=== PATIENT | female | born 1970 | race Caucasian/White ===

== ENCOUNTER → 2017-01-09 | Outpatient (CLI) | payer BC ==
--- NOTE | 2017-01-09 09:15 | MM ---
Reason for exam: screening (asymptomatic). Baseline mammogram. Physical Findings: Nurse did not find any significant physical abnormalities on exam. MG Screening Mammo w CAD Bilateral CC and MLO view(s) were taken. There is no discrete abnormality. These results were verbally communicated with the patient and result sheet given to the patient on 01/09/17. ASSESSMENT: Negative, BI-RAD 1 RECOMMENDATION: Routine screening mammogram of both breasts in 1 year.
== END | disposition home or self-care (01) ==
LOC: RADMAMWWP 07:51
PROVIDERS: ATTEND Obstetrics & Gynecology
DX: Z12.31 Encounter for screening mammogram for malignant neoplasm of breast (principal)

== ENCOUNTER → 2017-09-15 | Outpatient (CLI) | payer BC ==
[2017-09-15 09:57] LABS: Anion Gap 11 mmol/L; Blood Urea Nitrogen 14 mg/dL (7-17); Carbon Dioxide 21 mmol/L (22-30); Chloride 106 mmol/L (98-107); Glucose 122 mg/dL (74-99); Potassium 4.4 mmol/L (3.5-5.1); Sodium 138 mmol/L (137-145)
[2017-09-15 10:32] LABS: Basophils % (A) 0 %; Eosinophils # (A) 0.1 k/uL (0-0.7); Eosinophils % (A) 1 %; HCT 33.7 % (34.0-46.0); Hypochromasia Slight; Lymphocytes # (A) 1.2 k/uL (1.0-4.8); Lymphocytes % (A) 14 %; MCH 27.7 pg (25.0-35.0); MCHC 32.6 g/dL (31.0-37.0); MCV 85.1 fL (80.0-100.0); Mean Platelet Volume 7.4; Monocytes # (A) 0.5 k/uL (0-1.0); Monocytes % (A) 6 %; Neutrophils # (A) 6.3 k/uL (1.3-7.7); Neutrophils % (A) 78 %; Platelet Count 326 k/uL (150-450); RBC 3.97 m/uL (3.80-5.40); RDW 14.3 % (11.5-15.5); WBC 8.1 k/uL (3.8-10.6)
== END | disposition home or self-care (01) ==
LOC: LABPAT 08:15
PROVIDERS: ATTEND Obstetrics & Gynecology
DX: N92.0 Excessive and frequent menstruation with regular cycle (principal); D25.9 Leiomyoma of uterus, unspecified
CPT/HCPCS: 36415; 80051; 82565; 82947; 84520; 85025; 87086

== ENCOUNTER 2017-09-22 05:52 | Day surgery (SDC) | payer BC ==
[2017-09-18 08:36] VITALS: BMI 33.3
[~2017-09-22 05:52] MED LIST: DEXAMETHASONE SOD PHOSPHATE 10 MG/ML 1 ML VIAL IV ONE; HYDROmorphone 0.5 MG/0.5 ML SYRINGE IVP PRN; LACTATED RINGERS 1,000 ML IV SCH; LIDOCAINE 1% 20 ML VIAL (10MG/ML) FOR IV START INTRADERMA PRN; MIDAZOLAM 2 MG/2 ML VIAL IV PRN; ONDANSETRON 4 MG/2 ML VIAL IVP ONE; SCOPOLAMINE 1.5MG/72HR PATCH TRANSDERM ONE; ceFAZolin IN SWFI 2 GM/20 ML SYRINGE IVP ONE
[2017-09-22 06:45] LABS: Glucose,Whole Blood 127 mg/dL (75-99)
[2017-09-22] MEDS ORDERED: VASOPRESSIN 20 UNIT/ML 1 ML VIAL IM ONE ×3 (07:26→08:47)
[2017-09-22] MEDS ORDERED: BACITRACIN 500 UNIT/GM OINT 28.4 GM TUBE TOPICAL ONE ×2 (07:27→09:52)
[2017-09-22] MEDS ORDERED: MORPHINE SULFATE (PF) 0.3 MG/0.3 ML SYR ONE (08:21)
[2017-09-22] MEDS ORDERED: PROPOFOL 10 MG/ML 20 ML VIAL IV ONE (08:21)
[2017-09-22] MEDS ORDERED: MIDAZOLAM 2 MG/2 ML VIAL ONE (08:21)
[2017-09-22] MEDS ORDERED: fentaNYL (PF) 50 MCG/ML 2 ML AMP ONE (08:21)
[2017-09-22] MEDS ORDERED: diphenhydrAMINE 50 MG/ML 1 ML VIAL IVP PRN ×2 (08:39→10:50)
[2017-09-22] MEDS ORDERED: MORPHINE SULFATE 2 MG/ML SYRINGE IVP PRN (08:39)
[2017-09-22] MEDS ORDERED: NALOXONE 0.4 MG/ML 1 ML VIAL IV PRN (08:39)
[2017-09-22] MEDS ORDERED: KETOROLAC 30 MG/ML 1 ML VIAL IVP PRN ×2 (08:39→10:50)
[2017-09-22] MEDS ORDERED: LACTATED RINGERS 1,000 ML IV ONE (09:33)
[2017-09-22 10:12] LABS: Glucose,Whole Blood 162 mg/dL (75-99)
[2017-09-22] MEDS ORDERED: Acetaminophen-Codeine 300-30mg TAB PO PRN (10:50)
[2017-09-22] MEDS ORDERED: SIMETHICONE 80 MG CHEWABLE PO PRN (10:50)
[2017-09-22] MEDS ORDERED: ONDANSETRON 4 MG/2 ML VIAL IVP PRN (10:50)
[2017-09-22] MEDS ORDERED: ZOLPIDEM 5 MG TAB PO PRN (10:50)
--- NOTE | 2017-09-22 10:50 | P.OP ---
Date of Procedure: 09/22/17 Preoperative Diagnosis: Menorrhagia, fibroid uterus Postoperative Diagnosis: Same, normal-appearing ovaries bilaterally Procedure(s) Performed: Vaginal hysterectomy Anesthesia: spinal Surgeon: Ginger Nelson Director Of Regional Sales #1: Annalee Diaz Estimated Blood Loss (ml): 150 IV fluids (ml): 800 Urine output (ml): 100 Pathology: other (Cervix and uterus) Condition: stable Disposition: PACU () Operative Findings: Posterior uterine adhesions, normal-appearing ovaries bilaterally, grade 3 rectocele Description of Procedure: Patient is brought to the operating suite where a spinal with Duramorph is given. She's placed in the dorsal lithotomy position, cervix vagina perineum periurethral areas are all prepped and draped in usual sterile fashion. Antibiotics are given. The appropriate timeout is performed to assure proper patient and procedural identification. Bladder is drained for possibly 100 mL of clear yellow urine. Beta hCG is negative. Weighted speculum was placed into the vagina. Anterior lip of the cervix is grasped with a double-tooth tenaculum. Cervix is injected circumferentially with dilute Pitressin solution, total of 10 mL used. Sharp scalpel is used circumferentially to incise the mucosa with a V positioning at 6:00. Sponge rolled finger is used to sweep the mucosa back from the underlying plane, to avoid bladder and/or ureteral injury. Peritoneum is entered at 6:00 and suture tied with 2-0 Vicryl. The large billed speculum is then placed into the peritoneal cavity. Care is taken at all times to keep the mucosa swept from the operative field to avoid any neurologic injury. Serafin clamps are used across the uterosacral cardinal ligaments, these are clamped cut tied and held in a fanlike fashion with Allis clamps. Uterine vasculature is identified, clamped cut and suture ligated. 2 additional pedicles are taken superior to the vessels. Anterior peritoneum is entered at 12:00. Uterus is "walked out" posteriorly. Serafin clamps are used across the final pedicles, these are clamped cut tied with 0 Vicryl, flashed and retied for excellent hemostasis. Sponge stick is used and the ovaries are visualized, they're within normal limits to inspection. The previously placed 2-0 Vicryl suture at 6:00 is then brought around in a pursestring fashion to close the peritoneal cavity. The previously placed uterosacral ligament pedicles are brought across to incorporate the opposite pedicles as well as vaginal mucosa. 3 additional [id number] sutures of 0 Vicryl used for final cuff closure. Vagina is packed with one-inch iodophor gauze. Mayer is noted to be draining clear urine. Rectal exam reveals smooth rectal mucosa. All sponge needle and enhancement counts are correct at the end of the procedure. Patient is brought back to recovery room in stable condition with a blood pressure 98/50, pulse 74, 99% O2 saturation.
[2017-09-22] MEDS: NALBUPHINE 10 MG/ML VIAL (10ML MDV) IV PRN ×3 (12:59→22:17)
[2017-09-22] MEDS ORDERED: LISINOPRIL 10 MG TAB PO SCH (21:00)
--- NOTE | 2017-09-23 05:28 | P.PN ---
Progress Note - Text Progress Note Date: 09/23/17 Postoperative day 1 status post vaginal hysterectomy with spinal Duramorph for postoperative analgesia.The patient is doing well, there is mild generalized skin itching. The patient denies any paresthesia or weakness in the lower extremities There are no other anesthesia related complications. Further management as per the patient primary team.
[2017-09-23] MEDS ORDERED: metFORMIN 500 MG TAB PO SCH (07:30)
--- NOTE | 2017-09-23 07:33 | P.DS ---
Providers Date of admission: 09/22/17 Expected date of discharge: 09/23/17 Attending physician: Ginger Nelson Primary care physician: [facility] Course: This is a 47-year-old white female who presented with an increasingly symptomatic fibroid uterus. She had very long heavy painful periods, status post NovaSure ablation with continued issues. Patient has had 3 vaginal deliveries and after discussion our decision was to proceed with vaginal hysterectomy. Please see my admitting H&P for details. Patient underwent vaginal hysterectomy under my care yesterday. She did well intraoperatively with an estimated blood loss of the 150 mL's. Ovaries appeared normal to inspection and therefore were left in situ. Vagina was packed with iodoform gauze and Mayer catheter placed. Please see dictated operative note for details. Today the patient is doing well. Mayer catheter and vaginal packing of been removed. She is voiding, and urinating, and passing flatus. Vital signs are stable and she is afebrile. There is only scant vaginal drainage noted on the pad. Her pain is well tolerated. She is mildly itchy but this has been taken care of with Nubain. Patient is being discharged home later today. She is in very good condition for discharge home. She'll follow-up with me in the office in 2 weeks. I have reminded her no intercourse, tampons or douching. She will use over-the- counter ibuprofen products, 200 mg pills, 3 every 6 hours as needed. I've asked her to call me with any fevers shakes or chills, bloody vaginal drainage, with any pain not alleviated by [id number] ibuprofen, with any issues with bowel or bladder, or indeed with any difficulties or concerns. Patient Condition at Discharge: Good Plan - Discharge Summary New Discharge Prescriptions: No Action amLODIPine BESYLATE/BENAZEPRIL [Lotrel 5-10 mg Capsule] 1 cap PO HS sitaGLIPtin PHOS/metFORMIN HCL [Janumet Xr 50-1,000 mg Tablet] 1 each PO QAM Discharge Medication List amLODIPine BESYLATE/BENAZEPRIL [Lotrel 5-10 mg Capsule] 1 cap PO HS 09/18/17 [ History] sitaGLIPtin PHOS/metFORMIN HCL [Janumet Xr 50-1,000 mg Tablet] 1 each PO QAM [History] Follow up Appointment(s)/Referral(s): Ginger Nelson MD [STAFF PHYSICIAN] - 2 Weeks
[2017-09-23] MEDS ORDERED: LINAGLIPTIN 5 MG TABLET PO SCH (09:00)
[2017-09-23 09:53] VITALS: BP 129/73; PULSE 90; RESP 16; TEMP 98.5
[2017-09-23] MEDS ORDERED: amLODIPine 5 MG TAB PO SCH (21:00)
== END 2017-09-23 09:56 | disposition home or self-care (01) ==
LOC: OR 05:52 → 6PED 09:53 → OR 09-23 09:56
PROVIDERS: ATTEND Obstetrics & Gynecology
DX: D25.9 Leiomyoma of uterus, unspecified (principal); N80.0 Endometriosis of uterus; N88.8 Other specified noninflammatory disorders of cervix uteri; N81.6 Rectocele; N73.6 Female pelvic peritoneal adhesions (postinfective); I10 Essential (primary) hypertension; E89.2 Postprocedural hypoparathyroidism; E11.9 Type 2 diabetes mellitus without complications; Z79.84 Long term (current) use of oral hypoglycemic drugs; Z79.899 Other long term (current) drug therapy; Z90.49 Acquired absence of other specified parts of digestive tract
CPT/HCPCS: 81025; 86900; 86901; 86850; 88307; 58260; J2250; J1200; J1100; J2300; J2405; J2274; J3010; J2704; J0690

== ENCOUNTER → 2018-06-24 | Outpatient (CLI) | payer BC ==
--- NOTE | 2018-06-24 15:33 | US ---
EXAMINATION TYPE: US abdomen complete DATE OF EXAM: 06/24/2018 COMPARISON: NONE CLINICAL HISTORY: 48-year-old female R10.11 right upper quadrant abdominal pain. TECHNIQUE: Multiple sonographic images of the abdomen are obtained. FINDINGS: EXAM MEASUREMENTS: Liver Length: 17.4 cm Gallbladder: Surgically absent CBD: 0.8 cm Spleen: 10.1 cm Right Kidney: 12.5 x 3.6 x 5.3 cm Left Kidney: 12.9 x 5.9 x 5.7 cm Pancreas: wnl Liver: Echogenic and attenuating. This secondarily limits assessment for focal lesion. Gallbladder: Surgically absent CBD: wnl Spleen: wnl Right Kidney: No hydronephrosis. Left Kidney: No hydronephrosis. Upper IVC:wnlnl Abd Aorta:wnlnl IMPRESSION 1. Borderline hepatomegaly (17.4 cm) with moderate to severe hepatic steatosis. Correlate with LFTs, lipid profile, and patient risk factors. 2. Bile duct at 8 mm is within acceptable limits postcholecystectomy status.
== END | disposition home or self-care (01) ==
LOC: RADUSWWP 11:01
PROVIDERS: ATTEND Internal Medicine
DX: K76.0 Fatty (change of) liver, not elsewhere classified (principal); R16.0 Hepatomegaly, not elsewhere classified
CPT/HCPCS: 76700

== ENCOUNTER → 2022-01-27 | Outpatient (CLI) | payer BC ==
--- NOTE | 2022-01-28 08:38 | MM ---
Reason for Exam: Screening (asymptomatic). Last mammogram was performed 5 year(s) and 0 month(s) ago. Patient History: Menarche at age 14. First Full-Term at age 28. Hysterectomy at age 47. Maternal cousin had breast cancer. Risk Values: Lizeth 5 year model risk: 1.1%. NCI Lifetime model risk: 9.9%. Prior Study Comparison: 01/09/2017 Bilateral Screening Mammogram, [facility]. Tissue Density: There are scattered fibroglandular densities. Findings: Analyzed By CAD. There is no suspicious group of microcalcifications or new suspicious mass in either breast. Overall Assessment: Negative, BI-RAD 1 Management: Screening Mammogram of both breasts in 1 year. A clinical breast exam by your physician is recommended on an annual basis and results should be correlated with mammographic findings. Electronically signed and approved by: Michel Renee M.D.
== END | disposition home or self-care (01) ==
LOC: RADMAMWWP 08:24
PROVIDERS: ATTEND Internal Medicine
DX: Z12.31 Encounter for screening mammogram for malignant neoplasm of breast (principal); Z80.3 Family history of malignant neoplasm of breast
CPT/HCPCS: 77067

== ENCOUNTER → 2022-03-07 | Outpatient (CLI) | payer BC ==
--- NOTE | 2022-03-07 08:06 | MM ---
Reason for Exam: Clinical finding. Last screening mammogram was performed 2 month(s) ago. Indicated Problems: Palpable abnormality of the right side. Patient History: Menarche at age 14. First Full-Term at age 28. Hysterectomy at age 47. Maternal cousin had breast cancer. Risk Values: Lizeth 5 year model risk: 1.1%. NCI Lifetime model risk: 9.7%. Prior Study Comparison: 01/09/2017 Bilateral Screening Mammogram, [facility]. 01/27/2022 Bilateral MG screening mammo w CAD, [facility]. Tissue Density: Right: There are scattered fibroglandular densities. Findings: Analyzed By CAD. No suspicious group of microcalcifications or new suspicious mass within the right breast. No corresponding mammographic abnormality in the patient's region of palpable abnormality. Reported recent aspiration of this region with pus. Overall Assessment: Incomplete: need additional imaging evaluation, BI-RAD 0 Management: Diagnostic Breast Ultrasound of the right breast. A clinical breast exam by your physician is recommended on an annual basis and results should be correlated with mammographic findings. This exam should not preclude additional follow-up of suspicious palpable abnormalities. Results were given to the patient verbally at the time of exam. Electronically signed and approved by: Sourav North D.O.
--- NOTE | 2022-03-07 08:34 | USB ---
Reason for Exam: Clinical finding. Patient History: Menarche at age 14. First Full-Term at age 28. Hysterectomy at age 47. Maternal cousin had breast cancer. Risk Values: Lizeth 5 year model risk: 1.1%. NCI Lifetime model risk: 9.7%. Technique: Method: Targeted. Prior Study Comparison: 01/09/2017 Bilateral Screening Mammogram, [facility]. 01/27/2022 Bilateral MG screening mammo w CAD, [facility]. Findings: The lower inner quadrant of the right breast and the retroareolar of the right breast were scanned. Targeted ultrasound of the right breast the patient's region of palpable abnormality at 3-6 o'clock in the right breast was performed. There is a subcutaneous irregular hypoechoic lesion measuring 0.5 x 0.5 cm without internal color flow. This is wider than tall. This is likely benign scar tissue in the patient's region of likely prior abscess. Overall Assessment: Benign, BI-RAD 2 Management: Screening Mammogram of both breasts in 1 year. A clinical breast exam by your physician is recommended on an annual basis and results should be correlated with mammographic findings. This exam should not preclude additional follow-up of suspicious palpable abnormalities. Results were given to the patient verbally at the time of exam. Electronically signed and approved by: Sourav North D.O.
== END | disposition home or self-care (01) ==
LOC: RADMAMWWP 07:39
PROVIDERS: ATTEND Internal Medicine
DX: N60.01 Solitary cyst of right breast (principal); Z80.3 Family history of malignant neoplasm of breast
CPT/HCPCS: 77061; 77065